=== PATIENT | male | born 1975 | race Caucasian/White ===

== ENCOUNTER 2019-04-15 08:10 | Emergency (ER) | payer SELFPAY ==
[~2019-04-15] VITALS: Ht 170.2 cm; Wt 90.7 kg
[2019-04-15 08:41] VITALS: BP 146/82
--- NOTE | 2019-04-15 09:12 | PHYS DOC ---
Adult General Chief Complaint Chief Complaint: RIB PAIN HPI HPI Patient is a 43-year-old male presents for evaluation of right-sided rib pain. He suffered an injury several weeks ago. Mechanical fall, direct trauma. Did not seek care in the emergency department at that time. Increasing pain yesterday while lifting a pallet. No direct trauma at that time. Reports sharp pain that is worse with movement, moderate. Nonradiating. Denies rash. Denies dyspnea. No hemoptysis. No abdominal pain. No additional concerns at this time. Review of Systems Review of Systems Constitutional: Denies fever or chills. [] Eyes: Denies change in visual acuity. [] HENT: Denies nasal congestion or sore throat. [] Respiratory: Denies cough or shortness of breath. [] Cardiovascular: Denies exertional/pleuritic chest pain or edema. [] GI: Denies abdominal pain, nausea, vomiting, bloody stools or diarrhea. [] : Denies dysuria. [] Musculoskeletal: Denies back pain or joint pain. [] Integument: Denies rash. [] Neurologic: Denies headache, focal weakness or sensory changes. [] Endocrine: Denies polyuria or polydipsia. [] Lymphatic: Denies swollen glands. [] Psychiatric: Denies depression or anxiety. [] Family History Family History Noncontributory Allergies Allergies Allergies Coded Allergies Type Severity Reaction Last Updated Verified No Known Drug Allergies 04/15/19 No Physical Exam Physical Exam Constitutional: Well developed, well nourished, no acute distress, non-toxic appearance. [] HENT: Normocephalic, atraumatic, bilateral external ears normal, oropharynx moist, no oral exudates, nose normal. [] Eyes: PERRLA, EOMI, conjunctiva normal, no discharge. [] Neck: Normal range of motion, no tenderness, supple, no stridor. [] Cardiovascular:Heart rate regular rhythm, no murmur [] Lungs & Thorax: Bilateral breath sounds clear to auscultation mild right-sided chest wall tenderness. No palpable fracture. No subcutaneous emphysema. Normal inspection Abdomen: Bowel sounds normal, soft, no tenderness, no masses, no pulsatile masses. [] Skin: Warm, dry, no erythema, no rash. [] Back: No tenderness, no CVA tenderness. [] Extremities: No tenderness, no cyanosis, no clubbing, ROM intact, no edema. [] Neurologic: Alert and oriented X 3, normal motor function, normal sensory function, no focal deficits noted. [] Psychologic: Affect normal, judgement normal, mood normal. [] Current Patient Data Vital Signs Vital Signs Date Time Temp Pulse Resp B/P (MAP) Pulse Ox O2 Delivery O2 Flow Rate FiO2 04/15/19 08:41 98.3 81 16 146/82 (103) 98 Room Air 98.3 EKG EKG [] Radiology/Procedures Radiology/Procedures PATIENT: CÉSAR SORIANO ACCOUNT: [id number] : 1975 LOCATION: ER AGE: 43 SEX: M EXAM STATUS: REG ER ORD. PHYSICIAN: EDWIGE ORTIZ APRN REASON: injury/pain,pt fell 2 weeks ago,reinjured ribs lifting palate @ work . PROCEDURE: RIBS RIGHT AND PA CHEST Examination: RIBS RIGHT AND PA CHEST History: Pain, injury reportedly related to work Comparison/Correlation: None Findings: Frontal view of the chest, frontal view of the right ribs, and oblique views of the right ribs were provided. Heart size and pulmonary vasculature are normal. No infiltrate. No pneumothorax. Right sixth rib fracture laterally is present with moderate displacement. No pleural effusion. Impression: Acute displaced right sixth rib fracture laterally. No infiltrate. Electronically signed by: Deborah Persaud MD (04/15/2019 9:42 AM) [facility] DICTATED and SIGNED BY: DEBORAH PERSAUD MD DATE: 04/15/19 0942 Course & Med Decision Making Course & Med Decision Making Pertinent Labs and Imaging studies reviewed. (See chart for details) [] Dragon Disclaimer Dragon Disclaimer This electronic medical record was generated, in whole or in part, using a voice recognition dictation system. EDWIGE ORTIZ APRN Apr 15, 2019 09:12
--- NOTE | 2019-04-15 09:45 | RAD ---
Examination: RIBS RIGHT AND PA CHEST History: Pain, injury reportedly related to work Comparison/Correlation: None Findings: Frontal view of the chest, frontal view of the right ribs, and oblique views of the right ribs were provided. Heart size and pulmonary vasculature are normal. No infiltrate. No pneumothorax. Right sixth rib fracture laterally is present with moderate displacement. No pleural effusion. Impression: Acute displaced right sixth rib fracture laterally. No infiltrate. Electronically signed by: Austin Bowers MD (04/15/2019 9:42 AM) [facility]
[2019-04-15] MEDS ORDERED: HYDR-3164 PO (10:22)
--- NOTE | 2019-04-15 10:26 | PHYS DOC ---
Past Medical History Past Medical History: No Pertinent History Past Surgical History: Other Additional Past Surgical Histo: liver biopsy Alcohol Use: None Drug Use: Marijuana Adult General Chief Complaint Chief Complaint: RIB PAIN [facility] HPI 43-year-old male who presents for evaluation of right-sided rib pain. Suffering an injury several weeks ago. Mechanical fall, direct trauma. Mild pain at that time. Did not seek medical care. Presents with increasing pain after lifting a pallet yesterday. No direct trauma at that time. Complains of right-sided anterolateral rib pain. Nonradiating. Worse with movement, deep breath. Denies dyspnea. No exertional chest pain. No hemoptysis. No rash. No other concerns at this time. Pain, moderate to severe. Review of Systems Review of Systems Constitutional: Denies fever or chills [] Eyes: Denies change in visual acuity, redness, or eye pain [] HENT: Denies nasal congestion or sore throat [] Respiratory: Denies cough or shortness of breath [] Cardiovascular: No additional information not addressed in HPI [] GI: Denies abdominal pain, nausea, vomiting, bloody stools or diarrhea [] : Denies dysuria or hematuria [] Musculoskeletal: Denies back pain or joint pain [] Integument: Denies rash or skin lesions [] Neurologic: Denies headache, focal weakness or sensory changes [] Endocrine: Denies polyuria or polydipsia [] All other systems were reviewed and found to be within normal limits, except as documented in this note. Family History Family History Noncontributory Allergies Allergies Allergies Coded Allergies Type Severity Reaction Last Updated Verified No Known Drug Allergies 04/15/19 No Physical Exam Physical Exam Constitutional: Well developed, well nourished, no acute distress, non-toxic appearance. [] HENT: Normocephalic, atraumatic, bilateral external ears normal, oropharynx moist, no oral exudates, nose normal. [] Eyes: PERRLA, EOMI, conjunctiva normal, no discharge. [] Neck: Normal range of motion, no tenderness, supple, no stridor. [] Cardiovascular:Heart rate regular rhythm, no murmur [] Lungs & Thorax: Bilateral breath sounds clear to auscultation. Right anterolateral chest wall tenderness. No palpable fracture. No subcutaneous emp hysema. Normal inspection. [] Abdomen: Bowel sounds normal, soft, no tenderness, no masses, no pulsatile ma sses. [] Skin: Warm, dry, no erythema, no rash. [] Back: No tenderness, no CVA tenderness. [] Extremities: No tenderness, no cyanosis, no clubbing, ROM intact, no edema. [] Neurologic: Alert and oriented X 3, normal motor function, normal sensory function, no focal deficits noted. [] Psychologic: Affect normal, judgement normal, mood normal. [] Current Patient Data Vital Signs Vital Signs Date Time Temp Pulse Resp B/P (MAP) Pulse Ox O2 Delivery O2 Flow Rate FiO2 04/15/19 08:41 98.3 81 16 146/82 (103) 98 Room Air 98.3 EKG EKG [] Radiology/Procedures Radiology/Procedures [] PATIENT: CÉSAR SORIANO ACCOUNT: [id number] : 1975 LOCATION: ER AGE: 43 SEX: M EXAM STATUS: REG ER ORD. PHYSICIAN: EDWIGE ORTIZ APRN REASON: injury/pain,pt fell 2 weeks ago,reinjured ribs lifting palate @ work . PROCEDURE: RIBS RIGHT AND PA CHEST Examination: RIBS RIGHT AND PA CHEST History: Pain, injury reportedly related to work Comparison/Correlation: None Findings: Frontal view of the chest, frontal view of the right ribs, and oblique views of the right ribs were provided. Heart size and pulmonary vasculature are normal. No infiltrate. No pneumothorax. Right sixth rib fracture laterally is present with moderate displacement. No pleural effusion. Impression: Acute displaced right sixth rib fracture laterally. No infiltrate. Electronically signed by: Deborah Persaud MD (04/15/2019 9:42 AM) [facility] DICTATED and SIGNED BY: DEBORAH PERSAUD MD DATE: 04/15/19 0942 Course & Med Decision Making Course & Med Decision Making Pertinent Labs and Imaging studies reviewed. (See chart for details) exam benign. no emergency condition. rec close f/u with PCP. nursing to provide resources. return precautions reviewed with patient. to f/u as directed and return immediately if worse. [] Dragon Disclaimer Dragon Disclaimer This electronic medical record was generated, in whole or in part, using a voice recognition dictation system. Departure Departure Impression: Primary Impression: Rib fracture Disposition: HOME, SELF-CARE Condition: STABLE Referrals: NO PCP (PCP) Patient Instructions: Form - Excuse from Work, School, or Physical Activity, Rib Fracture Scripts Hydrocodone/Apap 5-325 (NORCO 5-325 TABLET) 1 Each Tablet 1 TAB PO PRN Q6HRS PRN for PAIN, #12 TAB 0 Refills Prov: EDWIGE ORTIZ APRN 04/15/19 EDWIGE ORTIZ APRN Apr 15, 2019 10:26
== END 2019-04-15 10:35 | disposition home or self-care (01) ==
LOC: ER 08:10
DX: S22.31XA Fracture of one rib, right side, initial encounter for closed fracture (principal); W18.39XA Other fall on same level, initial encounter; Y93.89 Activity, other specified; Y92.89 Other specified places as the place of occurrence of the external cause; Y99.8 Other external cause status
CPT/HCPCS: 71101; 99284